=== PATIENT | male | born 2000 | race African-American/Black ===

== ENCOUNTER 2022-09-06 20:39 | Emergency (ER) | payer SELFPAY ==
[2022-09-06] MEDS ORDERED: Ketorolac Tromethamine 30 MG/ML VIAL ONE (21:38)
== END 2022-09-06 21:42 | disposition home or self-care (01) ==
LOC: CSHERS 20:39
DX: S02.5XXA Fracture of tooth (traumatic), initial encounter for closed fracture (principal); W21.05XA Struck by basketball, initial encounter
CPT/HCPCS: 96372; 99283; J1885

== ENCOUNTER 2024-02-01 08:50 | Emergency (ER) | payer SELFPAY ==
[2024-02-01] MEDS ORDERED: Dexamethasone 10 MG/ML VIAL ONE (09:21)
[2024-02-01] MEDS ORDERED: Ketorolac Tromethamine 30 MG (1 mL) VIAL ONE (09:21)
[2024-02-01] MEDS ORDERED: Ondansetron ODT 4 MG TAB ONE (09:23)
[2024-02-01 09:55] LABS: Influenza A by NAA Not Detected (NotDetected); Influenza B by NAA Not Detected (NotDetected); SARS-CoV-2 NAA Rapid Test Not Detected (NotDetected)
== END 2024-02-01 11:56 | disposition home or self-care (01) ==
LOC: CSHERS 08:50
DX: J02.9 Acute pharyngitis, unspecified (principal); R11.2 Nausea with vomiting, unspecified
CPT/HCPCS: 36416; 87081; 87430; 96372; 99284; J1100; J1885; Q0162